=== PATIENT | female | born 1940 | race Caucasian/White ===

== ENCOUNTER 2024-10-17 21:03 | Emergency (ER) | payer OTHER, SELFPAY ==
[2024-10-17 21:05] VITALS: BP 181/100
[2024-10-17 22:24] VITALS: BP 158/100
[2024-10-17 23:00] VITALS: BP 175/151
[2024-10-18] VITALS: BP 135/112
[2024-10-18] MEDS: TYLENOL 650 MG PO (01:08)
--- NOTE | 2024-10-18 02:35 | ED.GENMED ---
History of Present Illness
General
Chief Complaint: Musculo-Skeletal Complaint
Source: patient and spouse
Exam Limitations: none
Time Seen by Provider: 10/18/24 00:16
Nursing documentation reviewed up to this point in time: agreed with
History of Present Illness
History of Present Illness:
84-year-old female presenting to the emergency department today with concerns of left foot discomfort after missing a step walking from her daughter's home prior to arrival. No additional injuries otherwise denies any head or neck pain. No
numbness or weakness. Typically walks with a rollator.
Past History
Past History
ED Past Medical History: Arrthythmia, CVA, GERD, HTN, Hypercholesterolemia and NIDDM
ED Past Surgical History: Cardiac (Pacemaker) and Orthopedic
Patient has exhibited threatening behavior?: No
PSI?: No
Social History
Tobacco: Non-smoker
Alcohol: None
Drug: None
Personal:
Living: with family
Employment: Retired
Family History
Family History: Other
Review of Systems
Review of Systems
Allergies reviewed?: Yes
All Other Systems: ROS reviewed and negative except as documented in HPI and ROS
Phy Exam
Physical Exam
Physical Exam:
GENERAL: Alert , in no apparent distress
EYE: pupils equal and reactive
NECK: Supple, no significant adenopathy.
ENT: o/p clr, mmm.
CARDIAC: Regular rate and rhythm .
LUNGS: Clear breath sounds bilaterally, no acute respiratory distress, no wheezes/rales/rhonchi
ABDOMEN: Soft, without focal tenderness, no r/g, no cvat
NEUROLOGICAL: Alert and oriented, no focal neuro deficits
SKIN: Warm and dry, skin intact.
MUSCULOSKELETAL: Bruising and small amount of swelling to the midfoot. No specific tenderness to palpation to the ankle good range of motion of the ankle as well as knee., well perfused.
PSYCH: Normal and appropriate interaction.
Course
Orders/Labs/Results
Orders:
Orders
10/17/24 21:07
Ankle, left 3 view CR [CR Ankle - Left Min 3 Views ] Urgent
Comment:
Reason For Exam: pain
CR Knee - Left 4 Or More View* Urgent
Comment:
Reason For Exam: pain
10/18/24 01:03
Acetaminophen [Tylenol] 650 mg PO NOW STA
CR Foot - Left Min 3 Views Urgent
Comment:
Reason For Exam: foot pain after fall
10/18/24 01:39
Ortho Boot Left- Treatment ONCE
Short or tall?: Short
Vital Signs
Initial and Last Documented VS:
Initial Vital Signs
Temp Pulse Resp BP Pulse Ox
98 F 89 16 181/100 99
10/17/24 21:05 10/17/24 21:05 10/17/24 21:05 10/17/24 21:05 10/17/24 21:05
Last Documented Vital Signs
Temp Pulse Resp BP Pulse Ox
98 F 91 22 135/112 96
10/17/24 21:05 10/18/24 00:30 10/18/24 00:30 10/18/24 00:00 10/18/24 02:37
MDM/Problems Addressed
MDM/Problems Addressed:
84-year-old female presenting with concerns of left-sided foot discomfort after missing a step while walking prior to arrival. Difficulty ambulating since secondary to pain. Signs normal here. X-rays without evidence of fracture of the knee ankle
and foot. Patient was given a boot to help with ambulation and was able to use a walker while here in the ER. Stable for outpatient management. Return precautions given. Given information for orthopedic follow-up.
*Pulse Oximetry
SaO2: 96
Oxygen Mode of Delivery: Room air
Patient hypoxic: no (96)
*Critical Care Note
Total Time (30-74mins, 75-104mins- exclusive of procedures): Not Applicable
ED Attending Note
-
Portions of this chart may have been created with voice recognition software.� Occasional wrong word or��sound alike� substitutions may have occurred due to the inherent limitations of voice recognition software.
Discharge Plan
Departure
Patient Disposition: Home (Routine Discharge)
Date of Disposition: 10/18/24
Time of Disposition: 02:36
Patient with high blood pressure during this ER visit?: No
Condition: Good
Covid-19: Not Applicable
Discharge Problem:
Foot sprain
Instructions: Sprain (DC)
Prescriptions:
No Action
biotin 1 MG capsule
1 mg PO DAILY
tramadol 50 mg Tablet
50 mg PO BID PRN (Reason: pain)
simvastatin 20 mg Tablet
20 mg PO DAILY
ascorbic acid (vitamin C) [Vitamin C] 500 MG tablet
250 mg PO QPM
docusate sodium 100 MG capsule
100 mg PO DAILY PRN (Reason: constipation)
cetirizine 10 mg Tablet
10 mg PO QPM
Theragen Tablet
1 tab PO DAILY
Visbiome 112.5 billion cell Capsule
1 cap PO DAILY
psyllium husk [Metamucil] 0.4 gram Capsule
0.12 g PO BID
losartan 25 mg tablet
25 mg PO BID Qty: 60 0RF
acetaminophen 325 MG tablet
650 mg PO Q6H PRN (Reason: mild pain)
cholecalciferol (vitamin D3) 2,000 UNITS tablet
2,000 units PO DAILY
carvedilol 12.5 MG tablet
25 mg PO BID Qty: 120 0RF
penicillin V potassium 500 MG tablet
500 mg PO DAILY 0RF
Patient Comments:
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
aspirin 81 MG tablet,chewable
81 mg PO DAILY Qty: 30 0RF
melatonin 5 MG tablet
5 mg PO HS Qty: 30 0RF
omeprazole 40 MG capsule,delayed release(DR/EC)
40 mg PO DAILY Qty: 30 0RF
Referrals:
Mago Horvath I., DO [Active, Orthopedics] - Follow up in 5-7 days
Mago Cabezas MD [Family Provider, Internal Medicine]
Activity Restrictions/Additional Instructions:
You came to the emergency department with concerns of foot and ankle discomfort. Here you had x-rays without signs of fracture. This is likely a sprain. Please rest ice compress and elevate and follow-up closely with orthopedics for further
management. Return for any worsening, new or concerning symptoms.
Interventions
Interventions:
*Risk Screen - Suicide Last Done: 10/17/24 21:05
*General Assessment Last Done: 10/18/24 01:39
*Neglect/Abuse Screening Last Done: 10/17/24 21:05
*ED- Fall Risk Assessment Last Done: 10/18/24 01:39
*ED COVID-19 Vaccine History Last Done: 10/18/24 01:39
*Nursing Disposition Last Done: 10/18/24 02:53
ED-Musculoskeletal Assessment Last Done: 10/18/24 00:33
ED- Neurological Assessment Last Done: 10/18/24 00:32
ED-Skin Assessment Last Done: 10/18/24 00:32
Discharge Date and Time
Discharge Date/Time: 10/18/24 02:54
Print Language: ROMANSH
== END 2024-10-18 02:54 | disposition home or self-care (01) ==
LOC: EMR 21:03
PROVIDERS: EMERGENCY PHYSICIAN Emergency Medicine; FAMILY PHYSICIAN Internal Medicine Geriatric Medicine
DX: S93.602A Unspecified sprain of left foot, initial encounter (principal); X50.1XXA Overexertion from prolonged static or awkward postures, initial encounter; E11.9 Type 2 diabetes mellitus without complications; E78.00 Pure hypercholesterolemia, unspecified; I10 Essential (primary) hypertension; Z86.73 Personal history of transient ischemic attack (TIA), and cerebral infarction without residual deficits; Z95.0 Presence of cardiac pacemaker
CPT/HCPCS: 99283; 73564; 73610; 73630